=== PATIENT | female | born 1995 | race African-American/Black ===

== ENCOUNTER 2018-04-06 09:21 | Emergency (ER) | payer MEDICAID, OTHER ==
[~2018-04-06] VITALS: Ht 170.2 cm; Wt 56.7 kg
[~2018-04-06 09:21] MED LIST: BACTRIM-DS1 EA ORAL; ERYTHROMYCIN3.5 GM OP; IBUPROFEN400 MG ORAL; NKM; PENICILLIN V P250 MG PO
[2018-04-06 09:26] VITALS: BP 104/66
[2018-04-06] MEDS ORDERED: RETIN-A15 GM TP (09:29)
[2018-04-06] MEDS ORDERED: IBUPROFEN600 MG ORAL (09:49)
[2018-04-06] MEDS ORDERED: AUGMENTIN 875-1 EAC1 ORAL (09:49)
[2018-04-06 10:04] VITALS: BP 104/66
--- NOTE | 2018-04-06 10:06 | Emergency Room Report ---
History of Present Illness General Chief Complaint: Sore Throat Source: Patient Present Illness HPI Patient just with complaints of sore throat ongoing for the past one to 2 days Reports increased pain with swallowing Has had subjective fevers and chills at home Denies any neck pain or photophobia Denies any chest pain or Vomiting denies any dysuria or frequency Allergies: Coded Allergies: No Known Allergies (Unverified , 06/29/13) Patient History Past Medical History: see triage record Pertinent Family History: none Last Menstrual Period: 02/17/18 Now: No Reviewed Nursing Documentation: PMH: Agreed; PSxH: Agreed Nursing Documentation-PMH Past Medical History: No Stated History Review of Systems All Other Systems: negative except mentioned in HPI Physical Exam Vital Signs Date Time Temp Pulse Resp B/P (MAP) Pulse Ox O2 Delivery O2 Flow Rate FiO2 04/06/18 09:26 98.1 85 16 104/66 98 Room Air 98.1 Sp02 EP Interpretation: reviewed, normal General Appearance: well appearing, no apparent distress Head: normocephalic, atraumatic Eyes: bilateral eye PERRL, bilateral eye EOMI ENT: TMs + canals normal, uvula midline, pharyngeal erythema Neck: full range of motion, supple, thyroid normal Respiratory: lungs clear Cardiovascular #1: regular rate, rhythm Musculoskeletal: normal inspection Neurologic: alert, oriented x3 Skin: normal color, no rash Lymphatic: no adenopathy Medical Decision Making Diagnostic Impression: Primary Impression: pharyngitis ER Course Given the clinical findings Given the examination and history Consistent with pharyngitis given the erythematous appearance patient is conservatively placed on antibiotics and will have close outpatient Last Vital Signs Date Time Temp Pulse Resp B/P (MAP) Pulse Ox O2 Delivery O2 Flow Rate FiO2 04/06/18 09:26 98.1 85 16 104/66 98 Room Air 98.1 Status: unchanged Disposition: HOME, SELF-CARE Condition: Stable Scripts Ibuprofen* (MOTRIN*) 600 Mg Tablet 600 MG ORAL Q8H PRN for For Pain, #20 TAB 0 Refills Prov: Julio Smith DO 04/06/18 Amoxicillin/Potassium Clav 875-125* (AUGMENTIN 875-125 TABLET*) 1 Each Tablet 1 TAB ORAL TWICE A DAY, #14 TAB Prov: Julio Smith DO 04/06/18 Patient Instructions: Pharyngitis, [id number] Additional Instructions: Patient is provided with the discharge instructions notified to follow up with primary doctor in the next 2-3 days otherwise return to the er with any worsening symptoms. Please note that this report is being documented using [employer] technology. This can lead to erroneous entry secondary to incorrect interpretation by the dictating instrument. Julio Smith DO April 06, 2018 10:06
== END 2018-04-06 10:30 | disposition home or self-care (01) ==
LOC: EMR 10:21
DX: J02.9 Acute pharyngitis, unspecified (principal)
CPT/HCPCS: 99284